=== PATIENT | female | born 1995 | race African-American/Black ===

== ENCOUNTER 2017-02-07 19:56 | Emergency (ER) | payer OTHER ==
[~2017-02-07] VITALS: Ht 154.9 cm; Wt 69.4 kg
--- NOTE | ~2017-02-07 | CR72 ---
[facility] A Service of [facility] RADIOLOGY TEXT RESULTS PATIENT: JAMES PACHECO LOCATION: [facility] : [birth year] UNIT #: [id number] AGE: [address]: Ashok John MD SEX: F ORDER DR: [id number] [facility] [address] [place], [place] [address] [id number] MR#: [id number] Acc #: [id number] NAME: JAMES PACHECO : 1995 SEX: F STUDY DATE/TIME: 02/07/2017 22:32 UNIT: [facility] ROOM: STUDY DESCRIPTION: CR Chest Single View Portable Attending Physician: Ashok John M.D. Ordering Physician: Ashok John M.D. Primary Care Physician: No Primary Care Physician MEDICAL IMAGING REPORT This report is preliminary unless electronic signature is present EXAM Portable chest INDICATION Chest pain, shortness of air today. PROCEDURE Frontal view of the chest. COMPARISON None. FINDINGS Heart size is normal. The lungs are clear. No pleural fluid or pneumothorax. IMPRESSION No active process. Dictated by... Young Gupta M.D. THIS IS AN ELECTRONICALLY VERIFIED REPORT Young Gupta M.D. at 02/08/2017 9:57 PM EED/dimitry TD: 02/08/2017 10:54 JOB #: [id number] MEDICAL IMAGING REPORT Page 1 of 1 COPY
--- NOTE | ~2017-02-07 | EKG ---
PATIENT: JAMES PACHECO UNIT #: [id number] Ventricular Rate: 83 BPM Atrial Rate: 83 BPM P-R Interval: 116 ms QRS Duration: 76 ms Q-T Interval: 360 ms QTC Calculation(Bezet): 423 ms P Hargill: 54 degrees Calculated R Hargill: 63 degrees Calculated T Hargill: 37 degrees Diagnosis Line: Normal sinus rhythm Diagnosis Line: Normal ECG Diagnosis Line: When compared with ECG of 20-MAY-2015 18:33, Diagnosis Line: No significant change was found Diagnosis Line: Confirmed by ADAIR ZALDIVAR MD ([id number]) on Diagnosis Line: 02/09/2017 10:51:23 AM INTERPRETING MD: ZEN ROMERO
[~2017-02-07 19:56] MED LIST: MOTRIN600 M1 PO; NORCO 7.5-3251 EACH PO
== END 2017-02-07 23:15 | disposition home or self-care (01) ==
LOC: CED 19:56
DX: R07.89 Other chest pain (principal); G43.909 Migraine, unspecified, not intractable, without status migrainosus
CPT/HCPCS: 71010; 93005; 99284